=== PATIENT | female | born 1995 | race American Indian/Alaskan Native ===

== ENCOUNTER 2019-03-21 16:31 | Emergency (ER) | payer SELFPAY ==
--- NOTE | 2019-03-21 17:40 | Event Note ---
ED Screening Note ED Screening Note: first day last mens??? approx 17 w not concerned for std g1 abd pain saw already thc no etoh cig This initial assessment/diagnostic orders/clinical plan/treatment(s) is/are subject to change based on patients health status, clinical progression and re- assessment by fellow clinical providers in the ED. Further treatment and workup at subsequent clinical providers discretion. Patient/guardian urged not to elope from the ED as their condition may be serious if not clinically assessed and managed. Initial orders include: ua blood us
[2019-03-21 18:49] LABS: Hematocrit 37.4 % (30.3-42.9); Hemoglobin 12.7 gm/dl (10.1-14.3); Mean Corpuscular HGB Conc 34 % (30-34); Mean Corpuscular Volume 90 fl (79-97); Platelet Count 208 K/mm3 (140-440); Red Blood Count 4.16 M/mm3 (3.65-5.03); Red Cell Distribution Width 14.2 % (13.2-15.2)
[2019-03-21 19:13] LABS: Alanine Aminotransferase 9 units/L (7-56); Albumin 3.7 g/dL (3.9-5); BUN/Creatinine Ratio 18; Blood Urea Nitrogen 7 mg/dL (7-17); Calcium 9.4 mg/dL (8.4-10.2); Hemolysis Index 57
--- NOTE | 2019-03-21 19:53 | Ultrasound Report ---
Obstetrical ultrasound greater than 14 weeks INDICATION: Pelvic pain in female FINDINGS: There is a single living intrauterine with biparietal diameter that measures 17 w eeks and 4 days ahead circumference that measures 17 weeks and 5 days and abdominal circumference radha sures 17 weeks and 0 days femur length of 17 weeks and 3 days. The cervical length measures 3.7 cm. The heart rate is 144 bpm. The placenta grade 0. The placenta is posterior in position. The amniotic fluid is proximally within normal limits. The fetus is in breech position. Incidental note is made of a large fibroid within the lower uterine segment that measures about 6 cm in diameter. IMPRESSION: Single living intrauterine , as outlined above. Signer Name: Dylan Leung MD Signed: 03/21/2019 7:49 PM Workstation Name: [id number]
--- NOTE | 2019-03-21 21:28 | Emergency Department Report ---
ED Female HPI - General Chief complaint: Abdominal Pain Stated complaint: 17 WKS /PAIN Time Seen by Provider: 03/21/19 17:40 Source: patient Mode of arrival: Ambulatory Limitations: No Limitations - History of Present Illness Initial comments: 23-year-old -[place] female presents to the emergency room for lower pelvic pain. Patient reports that she is approximately 17 weeks and reports she knows she has a fibroid. Patient has taken nothing for her pain. She denies any vaginal bleeding vaginal discharge dysuria urinary urgency urinary frequency hematuria. Patient denies any nausea vomiting. She is 1 para 0. She currently is OB care. MD Complaint: pelvic pain Onset/Timin -: week(s) Location: suprapubic Radiation: non-radiating Severity: moderate Severity scale (0 -10): 8 Quality: dull, aching Consistency: intermittent Are you Now?: Yes Associated Symptoms: denies other symptoms - Related Data Previous Rx's Medication Instructions Recorded Last Taken Type Acetaminophen [Acetaminophen TAB] 500 mg PO Q6HR PRN #30 tablet 03/21/19 Unknown Rx Allergies Allergy/AdvReac Type Severity Reaction Status Date / Time Penicillins Allergy Itching Verified 03/21/19 16:32 ED Review of Systems ROS: Stated complaint: 17 WKS /PAIN Other details as noted in HPI Comment: All other systems reviewed and negative Constitutional: denies: chills, fever Eyes: denies: eye pain, eye discharge, vision change ENT: denies: ear pain, throat pain Respiratory: denies: cough, shortness of breath, wheezing Cardiovascular: denies: chest pain, palpitations Endocrine: no symptoms reported Gastrointestinal: abdominal pain Genitourinary: denies: urgency, dysuria, discharge Musculoskeletal: denies: back pain, joint swelling, arthralgia Skin: denies: rash, lesions Neurological: denies: headache, weakness, paresthesias Psychiatric: denies: anxiety, depression Hematological/Lymphatic: denies: easy bleeding, easy bruising ED Past Medical Hx - Past Medical History Previous Medical History?: No - Surgical History Past Surgical History?: No - Social History Smoking Status: Never Smoker Substance Use Type: None - Medications Home Medications: Home Medications Medication Instructions Recorded Confirmed Last Taken Type Acetaminophen [Acetaminophen TAB] 500 mg PO Q6HR PRN #30 tablet 03/21/19 Unknown Rx ED Physical Exam - General Limitations: No Limitations General appearance: alert, in no apparent distress - Head Head exam: Present: atraumatic, normocephalic - Eye Eye exam: Present: normal appearance - ENT ENT exam: Present: mucous membranes moist - Neck Neck exam: Present: normal inspection - Respiratory Respiratory exam: Present: normal lung sounds bilaterally. Absent: respiratory distress - Cardiovascular Cardiovascular Exam: Present: regular rate, normal rhythm. Absent: systolic murmur, diastolic murmur, rubs, gallop - GI/Abdominal GI/Abdominal exam: Present: soft, tenderness (suprapubic), normal bowel sounds - Extremities Exam Extremities exam: Present: normal inspection - Back Exam Back exam: Present: normal inspection - Neurological Exam Neurological exam: Present: alert, oriented X3 - Psychiatric Psychiatric exam: Present: normal affect, normal mood - Skin Skin exam: Present: warm, dry, intact, normal color. Absent: rash ED Course Vital Signs 03/21/19 03/21/19 17:40 22:26 Temperature 98.5 F 98 F Pulse Rate 110 H 86 Respiratory 16 18 Rate Blood Pressure 100/62 Blood Pressure 108/76 [Left] O2 Sat by Pulse 100 100 Oximetry ED Medical Decision Making - Lab Data Result diagrams: 03/21/19 18:26 03/21/19 18:26 - Radiology Data Radiology results: report reviewed Patient: TERRI MARIE MR#: [id number] : 1995 Acct:[id number] Age/Sex: 23 / F ADM Date: 03/21/19 Loc: ED Attending Dr: Ordering Physician: DENIZ OGLESBY Date of Service: 03/21/19 Procedure(s): US OB >= 14 weeks Fetus Accession Number(s): [id number] cc: DENIZ OGLESBY Obstetrical ultrasound greater than 14 weeks INDICATION: Pelvic pain in female FINDINGS: There is a single living intrauterine with biparietal d iameter that measures 17 weeks and 4 days ahead circumference that measures 17 weeks and 5 days and abdominal circumference measures 17 weeks and 0 days femur length of 17 weeks and 3 days. The cervical length measures 3.7 cm. The heart rate is 144 bpm. The placenta grade 0. The placenta is posterior in position. The amniotic fluid is proximally within normal limits. The fetus is in breech position. Incidental note is made of a large fibroid within the lower uterine segment that measures about 6 cm in diameter. IMPRESSION: Single living intrauterine , as outlined above. Signer Name: Dylan Leung MD Signed: 03/21/2019 7:49 PM Workstation Name: [id number] Transcribed By: Dictated By: Dylan Leung MD Electronically Authenticated By: Dylan Leung MD Signed Date/Time: 03/21/191948 DD/ 46 TD/TT: - Medical Decision Making 23-year-old -[place] female presents to the emergency room for lower pelvic pain. Patient reports that she is approximately 17 weeks and reports she knows she has a fibroid. Patient has taken nothing for her pain. She denies any vaginal bleeding vaginal discharge dysuria urinary urgency urinary frequency hematuria. Patient denies any nausea vomiting. She is 1 para 0. She currently is OB care. Ultrasound shows patient 17 weeks . Urinalysis is negative for any urinary tract infection. I discussed the patient her pain is most likely due to round ligament pain and fibroid pain. Discussed the patient to 5 taken Tylenol for pain management. Discussed the patient to follow up with her ICU NURSE provider. Critical care attestation.: If time is entered above; I have spent that time in minutes in the direct care of this critically ill patient, excluding procedure time. ED Disposition Clinical Impression: Abdominal pain, Fibroid, Disposition: DC-01 TO HOME OR SELFCARE Is pt being admited?: No Does the pt Need Aspirin: No Condition: Stable Instructions: (ED), Uterine Fibroids (ED), Abdominal Pain (ED) Additional Instructions: Ultrasounds shows you are 17 weeks do have a fibroid that's noted. You can take Tylenol for pain management. Please follow-up with the SURGICAL SERVICES DIRECTOR. Be sure to take her vitamins. Prescriptions: Acetaminophen [Acetaminophen TAB] 500 mg PO Q6HR PRN #30 tablet PRN Reason: Pain , Severe (7-10) Referrals: [facility] [Provider Group] - 3-5 Days [facility] [Provider Group] - 3-5 Days [facility] [Provider Group] - 3-5 Days [facility] [Primary Care Provider] - 3-5 Days Forms: Accompanied Note, Work/School Release Form(ED)
[2019-03-21 21:44] LABS: Bacteria,Urine 1+ /HPF (Negative); Bilirubin,Urine NEG (Negative); Blood,Urine NEG (Negative); Color,Urine Yellow (Yellow); Mucus,Urine 2+ /HPF; Protein,Urine <15 mg/dL mg/dL (Negative); Urobilinogen,Urine < 2.0 mg/dL (<2.0)
[2019-03-21 22:27] VITALS: BP 108/76
== END 2019-03-21 22:27 | disposition home or self-care (01) ==
LOC: ED 16:31
DX: O26.892 Other specified pregnancy related conditions, second trimester (principal); D21.9 Benign neoplasm of connective and other soft tissue, unspecified; R10.9 Unspecified abdominal pain; Z88.0 Allergy status to penicillin
CPT/HCPCS: 36415; 76805; 80053; 81001; 84702; 85027; 86900; 86901